=== PATIENT | male | born 1945 | race Caucasian/White ===

== ENCOUNTER 2019-02-26 16:32 | Observation (INO) | payer MEDICARE, OTHER ==
[~2019-02-26 16:32] MED LIST: ISOVUE-370 76%-LOCM 1 ML ONE
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
[2019-02-26 17:42] LABS: #Eosinphils 0.2 thou/uL (0.0-0.7); #Lymphocytes 1.2 thou/uL (1.20-3.40); #Monocytes 0.8 thou/uL (0.11-0.59); #Neutrophils 10.5 thou/uL (1.40-6.50); %Basophils 0.2 % (0.0-1.0); %Eosinophils 1.7 % (0.0-10.0); %Lymphocytes 9.2 % (21.0-51.0); %Monocytes 6.5 % (0.0-10.0); %Neutrophils 82.6 % (42.0-75.0); Hemoglobin 15.9 g/dL (14.0-18.0); Mean Corpuscular HGB CONC 33.5 g/dL (32.0-36.0); Mean Corpuscular Hemoglobin 30.2 pg (27.0-31.0); Mean Corpuscular Volume 90.2 fL (78.0-98.0); Mean Platelet Volume 8.6 fL (7.4-10.4); Platelet Count 149 thou/uL (130-400); RBC Distribution Width 12.4 % (11.5-14.5); Red Blood Cell (RBC) Count 5.26 mill/uL (4.70-6.10); White Blood Cell (WBC) Count 12.7 thou/uL (4.8-10.8)
[2019-02-26 18:01] LABS: ALT (SGPT) 34 U/L (8-55); AST (SGOT) 39 U/L (5-34); Albumin 4.1 g/dL (3.4-4.8); Alcohol Less than 10 mg/dL (Less than 10); Alkaline Phosphatase 72 U/L (40-150); Anion Gap 16 mmol/L (10-20); BUN (Urea Nitrogen) 26 mg/dL (8.4-25.7); Bilirubin, Total 0.4 mg/dL (0.2-1.2); Calc. Creatinine Clearance 0 mL/min (70-130); Carbon Dioxide 19 mmol/L (23-31); Chloride 108 mmol/L (98-107); Estimated GFR-MDRD 65; Globulin 2.8 g/dL (2.4-3.5); Glucose 105 mg/dL (83-110); Potassium 4.7 mmol/L (3.5-5.1); Protein, Total 6.9 g/dL (5.8-8.1); Sodium 138 mmol/L (136-145)
[2019-02-26] MEDS ORDERED: Adacel (T-DAP) 0.5 ML SYRINGE ONE (18:20)
[2019-02-26] MEDS ORDERED: Morphine 4 MG/ML VIAL ONE (18:20)
[2019-02-26] MEDS ORDERED: Dextrose 50% Abboject 50 ML SYRINGE SLOW IVP PRN (20:07)
[2019-02-26] MEDS ORDERED: Ondansetron PF 4 MG/2 ML Vial IVP PRN (20:07)
[2019-02-26] MEDS ORDERED: Ketorolac Tromethamine 30 MG/ML VIAL IVP SCH (20:07)
[2019-02-26] MEDS ORDERED: Rib Fracture Protocol PO SCH (20:07)
[2019-02-26] MEDS ORDERED: hydrALAZINE 20 MG/ML VIAL SLOW IVP PRN (20:07)
[2019-02-26] MEDS ORDERED: Ondansetron ODT 4 MG TAB PO PRN (20:07)
[2019-02-26] MEDS ORDERED: Dextrose 5% in Water 1,000 ML IV PRN (20:07)
[2019-02-26] MEDS ORDERED: Acetaminophen 1,000 MG in Premix Bag 1 BAG IVPB SCH (20:07)
[2019-02-26] MEDS ORDERED: Cyclobenzaprine 10 MG TAB PO PRN (20:30)
[2019-02-26] MEDS: Ibuprofen 600 MG TAB PO SCH (21:22)
[2019-02-26] MEDS: Famotidine 20 MG TAB PO SCH (21:23)
[2019-02-26] MEDS: Gabapentin 100 MG CAP PO SCH (21:23)
[2019-02-26 22:42] VITALS: BMI 31.4
[2019-02-26] MEDS ORDERED: Acetaminophen 500 MG TAB PO SCH (23:59)
[2019-02-27] MEDS: traMADol HCl 50 MG TAB PO SCH ×3 (00:02→11:57)
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
[2019-02-27 04:53] LABS: #Lymphocytes 1.1 thou/uL (1.20-3.40); #Monocytes 1.4 thou/uL (0.11-0.59); %Eosinophils 0.3 % (0.0-10.0); %Lymphocytes 8.6 % (21.0-51.0); %Monocytes 10.8 % (0.0-10.0); %Neutrophils 80.2 % (42.0-75.0); Hemoglobin 15.3 g/dL (14.0-18.0); Mean Corpuscular HGB CONC 33.9 g/dL (32.0-36.0); Mean Corpuscular Hemoglobin 31.4 pg (27.0-31.0); Mean Corpuscular Volume 92.6 fL (78.0-98.0); Mean Platelet Volume 8.2 fL (7.4-10.4); Platelet Count 149 thou/uL (130-400); RBC Distribution Width 12.5 % (11.5-14.5); Red Blood Cell (RBC) Count 4.87 mill/uL (4.70-6.10); White Blood Cell (WBC) Count 12.5 thou/uL (4.8-10.8)
[2019-02-27 05:09] LABS: Anion Gap 14 mmol/L (10-20); BUN (Urea Nitrogen) 24 mg/dL (8.4-25.7); Calc. Creatinine Clearance 98 mL/min (70-130); Calcium 8.9 mg/dL (7.8-10.44); Carbon Dioxide 21 mmol/L (23-31); Chloride 107 mmol/L (98-107); Estimated GFR-MDRD 68; Glucose 126 mg/dL (83-110); Potassium 4.2 mmol/L (3.5-5.1); Sodium 138 mmol/L (136-145)
[2019-02-27] MEDS: Acetaminophen 500 MG TAB PO SCH ×2 (05:37→11:57)
[2019-02-27] MEDS: Ibuprofen 600 MG TAB PO SCH (05:38)
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
[2019-02-27] MEDS: Famotidine 20 MG TAB PO SCH (08:20)
[2019-02-27] MEDS: Gabapentin 100 MG CAP PO SCH (08:20)
[2019-02-27 11:28] VITALS: BP 145/84; TEMP 98.4
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
== END 2019-02-27 13:20 | disposition home or self-care (01) ==
LOC: ERS 16:32 → SJJU 17:52
PROVIDERS: ADMIT Specialist; ATTEND Specialist
DX: S22.42XA Multiple fractures of ribs, left side, initial encounter for closed fracture (principal); G47.30 Sleep apnea, unspecified; I10 Essential (primary) hypertension; I25.10 Atherosclerotic heart disease of native coronary artery without angina pectoris; M47.817 Spondylosis without myelopathy or radiculopathy, lumbosacral region; M43.17 Spondylolisthesis, lumbosacral region; Z95.0 Presence of cardiac pacemaker; Z79.82 Long term (current) use of aspirin; Z79.899 Other long term (current) drug therapy; Z99.89 Dependence on other enabling machines and devices; V28.4XXA Motorcycle driver injured in noncollision transport accident in traffic accident, initial encounter
CPT/HCPCS: 70450; 71045; 71260; 72125; 73070 ×2; 73110; 73564 ×2; 74177; 80048; 80053; 80307; 85025 ×2; 90471; 90715; 94640 ×2; 96374; 96375; 97139; 99285; G0378; 36415; G0390; J0131; J1885; J2270; J7620; Q9966